=== PATIENT | male | born 1955 | race Caucasian/White ===

== ENCOUNTER → 2020-01-19 | Outpatient (CLI) | payer BC ==
--- NOTE | 2020-01-19 09:24 | US ---
EXAMINATION TYPE: US prostate transrectal DATE OF EXAM: 01/19/2020 COMPARISON: NONE CLINICAL HISTORY: R97.20 elevated prostate specific antigen PSA. Elevated PSA, pt states no urinary s ymptoms This examination was performed using the transrectal probe. EXAM MEASUREMENTS: Gland Size: 4.6 x 3.7 x 4.8 cm Volume: 42.8 Predicted PSA: 5.1 Actual PSA (if available):5.1 Heterogeneous gland with central calcifications/ No peripheral lesion could be appreciated at this time IMPRESSION: Enlarged prostate gland without suspicious lesion. Predicted PSA = volume x 0.12 ng/ml Calculated Volume = 0.5236 x L x W x H
== END | disposition home or self-care (01) ==
LOC: RADUSWWP 08:45
PROVIDERS: ATTEND Internal Medicine
DX: N40.0 Benign prostatic hyperplasia without lower urinary tract symptoms (principal)
CPT/HCPCS: 76872